=== PATIENT | male | born 1985 | race Caucasian/White ===

== ENCOUNTER 2020-05-31 18:09 | Emergency (ER) | payer OTHER ==
[~2020-05-31] VITALS: Ht 188 cm; Wt 95.3 kg
[~2020-05-31 18:09] MED LIST: CLEOCIN HCL300 MG PO; FLEXERIL PO; NAPROSYN375 MG PO; NOHOMEMEDICATIONS; NORCO 5-325 TA1 EACH PO; PENICILLIN V P500 MG PO; PENICILLIN VK500 M1 PO; PENICILLIN VK500 MG PO; ULTRAM 50MG TAB50 MG PO; VICODIN 5-5001 EACH PO
[2020-05-31 18:26] LABS: URINE BILIRUBIN NEGATIVE (Negative); URINE BLOOD 2+ (Negative); URINE CLARITY CLEAR; URINE COLOR DARK YELLOW; URINE GLUCOSE-RANDOM NEGATIVE (Negative); URINE KETONES NEGATIVE (Negative); URINE LEUKOCYTES-REFLEX NEGATIVE (Negative); URINE NITRITE-REFLEX NEGATIVE (Negative); URINE PROTEIN 1+ (Negative); URINE SPECIFIC GRAVITY >= 1.030 (1.005-1.030); URINE UROBILINOGEN 0.2 E.U./dl (0.2-1.0)
[2020-05-31 18:34] LABS: SQUAMOUS 0-3 Few /LPF (0-3); URINE WBC-REFLEX 0-5 Rare /HPF (0-5)
[2020-05-31 18:35] LABS: BACTERIA-REFLEX >30 Many /HPF (None Seen); CASTS None Seen /LPF (None Seen); CRYSTALS None Seen /LPF (None Seen); MUCUS >6 Heavy strn/LPF (None Seen); URINE RBC >20 Many /HPF (0-2)
[2020-05-31 18:57] LABS: ABSOLUTE BASOPHILS 0.1 thou/uL (0.0-0.2); ABSOLUTE EOSINOPHILS 0.1 thou/uL (0.0-0.7); ABSOLUTE LYMPHOCYTES 4.4 thou/uL (0.8-5.3); ABSOLUTE MONOCYTES 0.7 thou/uL (0.0-1.2); ABSOLUTE NEUTROPHILS 5.1 thou/uL (1.6-8.1); BASOPHILS 0.6 %; EOSINOPHILS 0.8 %; HEMATOCRIT 41.4 % (42.0-52.0); HEMOGLOBIN 14.3 gm/dL (14.0-18.0); LYMPHOCYTES 42.4 %; MCH 29.6 pg (26.0-34.0); MCHC 34.4 g/dL (28.0-37.0); MONOCYTES 7.1 %; NUCLEATED RBCS 0 /100WBC; PLATELET COUNT* 218 thou/uL (150-400); POLYS 49.1 %; RBC 4.82 mil/uL (4.50-6.00); RDW-CV 14.1 % (10.5-14.5); WBC 10.4 thou/uL (4.0-11.0)
[2020-05-31 19:09] LABS: CALCIUM 8.6 mg/dL (8.5-10.1); CREATININE 1.5 mg/dL (0.6-1.3); POTASSIUM 3.8 mmol/L (3.5-5.1)
[2020-05-31 19:14] LABS: TOTAL BILIRUBIN 0.8 mg/dL (<0.1-1.0); TOTAL PROTEIN 7.4 g/dL (6.4-8.2)
[2020-05-31] MEDS ORDERED: FLOMAX0.4 MG PO (19:34)
[2020-05-31] MEDS ORDERED: ONDANSETRON ODT4 MG PO (19:34)
[2020-05-31] MEDS ORDERED: NORCO 5-325 TA1 EAC2 PO (19:34)
[2020-05-31 21:21] VITALS: BP 150/88
== END 2020-05-31 21:23 | disposition home or self-care (01) ==
LOC: M.ERS 18:09
PROVIDERS: Physician Assistant
DX: N20.0 Calculus of kidney (principal); R11.2 Nausea with vomiting, unspecified